=== PATIENT | male | born 1950 | race Hispanic/Latino ===

== ENCOUNTER 2018-07-08 12:50 | Day surgery (SDC) | payer MEDICARE ==
[2018-07-08 13:28] LABS: #Lymphocytes 1.2 thou/uL (1.20-3.40); #Monocytes 1.7 thou/uL (0.11-0.59); #Neutrophils 14.4 thou/uL (1.40-6.50); %Basophils 0.2 % (0.0-1.0); %Eosinophils 0.2 % (0.0-10.0); %Lymphocytes 6.9 % (21.0-51.0); %Monocytes 9.8 % (0.0-10.0); %Neutrophils 82.9 % (42.0-75.0); Hemoglobin 14.5 g/dL (14.0-18.0); Mean Corpuscular HGB CONC 33.8 g/dL (32.0-36.0); Mean Corpuscular Hemoglobin 32.8 pg (27.0-31.0); Mean Corpuscular Volume 97.1 fL (78.0-98.0); Platelet Count 236 thou/uL (130-400); RBC Distribution Width 11.8 % (11.5-14.5); Red Blood Cell (RBC) Count 4.43 mill/uL (4.70-6.10); White Blood Cell (WBC) Count 17.4 thou/uL (4.8-10.8)
[2018-07-08 13:44] LABS: Bilirubin Negative (Negative); Blood, Urine Moderate (Negative); Clarity CLEAR (Clear); Glucose, Urine (Dipstick) 500 mg/dL (Negative); Leukocyte Trace (Negative); Nitrite Negative (Negative); Protein, Urine (Dipstick) 30 mg/dL (Neg-Trace); Specific Gravity, Urine 1.025 (1.002-1.036)
[2018-07-08 13:50] LABS: Bacteria/HPF None Seen HPF (None Seen); Hyaline Casts/LPF 4-6 HYALINE CAST LPF (0-3 Hyaline); Pathc Cast-AUWi Flag 0.29 (0-2.49); Squamous Epithelial 0-3 HPF (0-3); WBC/HPF 0-3 HPF (0-3)
[2018-07-08 13:51] LABS: ALT (SGPT) 19 U/L (8-55); AST (SGOT) 19 U/L (5-34); Albumin 4.3 g/dL (3.4-4.8); Alkaline Phosphatase 79 U/L (40-150); Anion Gap 12 mmol/L (10-20); BUN (Urea Nitrogen) 11 mg/dL (8.4-25.7); Bilirubin, Total 1.4 mg/dL (0.2-1.2); Calc. Creatinine Clearance 0 mL/min (70-130); Calcium 9.4 mg/dL (7.8-10.44); Carbon Dioxide 24 mmol/L (23-31); Chloride 100 mmol/L (98-107); Estimated GFR-MDRD 90; Globulin 3.4 g/dL (2.4-3.5); Glucose 155 mg/dL (80-115); Lipase 7 U/L (8-78); Potassium 3.7 mmol/L (3.5-5.1); Protein, Total 7.7 g/dL (5.8-8.1); Sodium 132 mmol/L (136-145)
[2018-07-08] MEDS ORDERED: Glycopyrrolate 0.2 MG/ML 5 ML SYRINGE ONE (13:57)
[2018-07-08] MEDS ORDERED: Lidocaine 1% PF 5 ML VIAL ONE (13:57)
[2018-07-08] MEDS ORDERED: PROPOFOL 200 MG/20 ML VIAL ONE (13:57)
[2018-07-08] MEDS ORDERED: Dexamethasone 20 MG/5 ML VIAL ONE (13:57)
[2018-07-08] MEDS ORDERED: Ondansetron PF 4 MG/2 ML Vial ONE (13:57)
[2018-07-08] MEDS ORDERED: Piperacillin/Tazobactam 3.375 GM VIAL ONE (15:00)
--- NOTE | 2018-07-08 15:34 | ULT ---
RIGHT UPPER QUADRANT SONOGRAM: HISTORY: Right upper quadrant pain. FINDINGS: Large, echogenic stone with shadowing is present at the gallbladder neck. There is thickening of the gallbladder wall, up to 1.2 cm, and a small amount of pericholecystic fluid. The patient was report edly not tender over the gallbladder fossa at the time of the exam. The common duct is 0.3 cm. The liver is unremarkable. No free fluid. IMPRESSION: 1. Cholelithiasis. 2. Findings of acute cholecystitis include gallbladder distention, thickening of the gallbladder wal l, and a small amount of pericholecystic fluid. Clinical correlation regarding other signs and sympt oms of acute cholecystitis is required. POS: [facility]
[2018-07-08] MEDS ORDERED: Fentanyl 250 MCG/5 ML VIAL ONE (17:40)
[2018-07-08] MEDS ORDERED: Midazolam HCl 2 mg/2 ml Vial ONE (17:40)
[2018-07-08] MEDS ORDERED: Bupivacaine/Epinephrine 0.25% 30 ML VIAL ONE (17:41)
[2018-07-08] MEDS ORDERED: Iothalamate Meglumine 60% 50 ML VIAL FS ONE (17:41)
[2018-07-08] MEDS ORDERED: Ketorolac Tromethamine 30 MG/ML VIAL ONE (19:38)
[2018-07-08] MEDS ORDERED: Fentanyl 100 MCG/2 ML VIAL ONE (19:57)
--- NOTE | 2018-07-08 20:30 | HP ---
DATE OF ADMISSION: 07/08/2018 HISTORY OF PRESENT ILLNESS: Mr. Heredia is a 67-year-old man who [facility] with complaint of recurrent epigastric to right upper quadrant abdominal pain of 1 week dura tion. 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 The pain has been associated with multiple episodes of nausea, but no emesis. Denies any diarrhea. He reports ab dominal bloating and frequent flatulence. The patient denies any fevers or chills. He now reports h is pain 10/10. PAST MEDICAL HISTORY: Significant for essential hypertension and chronic back pain. PAST SURGICAL HISTORY: He denies any previous surgeries. SOCIAL HISTORY: Patient is and lives at home with his family. He is employed as a caregiver . He denies any cigarette smoking, ethanol or illicit drug abuse. FAMILY HISTORY: Notable for heart disease and diabetes mellitus. PREHOSPITALIZATION MEDICATIONS: Includes some antihypertensives. He does not recall any specifics. ALLERGIES: Patient denies any known drug allergies. REVIEW OF SYSTEMS: A 10-point review of system is essentially unremarkable except for as stated in p ast medical history and chief complaint. PHYSICAL EXAMINATION: GENERAL: This reveals a 67-year-old normally developed man who is otherwise coherent and interactive and appears stated age. The patient is alert and oriented x3. Appears to be in moderate acute dist ress secondary to abdominal pain. VITAL SIGNS: Includes blood pressure 160/55, pulse 87, respiratory rate is 16, temperature 98.2 degr ees Fahrenheit, oxygen saturation is 97% on room air. HEENT: Reveals normocephalic and atraumatic. Pupils are equal, round, and reactive to light and acc ommodation. Extraocular muscles are intact bilaterally. No sclerae icterus is present. Oral mucosa is pink and moist. No lesions are noted. NECK: Supple. No palpable lymphadenopathy or thyromegaly present. HEART: Reveals regular rate and rhythm, no murmurs or gallops auscultated. LUNGS: Clear to auscultation bilaterally. Breathing regular and unlabored. ABDOMEN: Soft with exquisite tenderness in right upper quadrant and epigastrium. He has a positive [place] sign. Liver and spleen otherwise nonpalpable below costal margin. EXTREMITIES: Reveals 2+ radial and pedal pulses bilaterally. No ankle edema is present. NEUROLOGIC: Examination reveals no focal deficits present. LABORATORY DATA AND IMAGING DATA: Pertinent laboratory findings includes a CBC with 17,400 white blo od cells, hemoglobin and hematocrit 14.5 and 43.0 respectively. Platelet count is 236,000. Metaboli c profile: Sodium 132, potassium 3.7, chloride is 100, bicarbonate 24, BUN 11, creatinine 0.85, gluc ose 155, total bilirubin 1.4, AST and ALT normal at 19 and 19 respectively. Lipase is also normal at 7. I personally reviewed the abdominal ultrasound, which is remarkable for markedly distended gallb ladder with gallbladder wall thickening and pericholecystic fluid present. Also noted is large impac gildardo solitary gallstone in the gallbladder neck. Common bile duct is normal in diameter for this ephraim ent's age at 3 mm. IMPRESSION: Acute cholecystitis with cholelithiasis. PLAN: Laparoscopic cholecystectomy. I have informed the patient of the above findings and recommend ations. I have also informed him of the risks and benefits of the proposed surgery to include, but n ot limited to bleeding, infection, injury to bile duct or surrounding structures. This information was given to the patient in the presence of his nurse in the emergency department. The patient indicated understanding of information given and has granted consent for this admission a nd surgical intervention.
--- NOTE | 2018-07-08 22:38 | OP ---
DATE OF PROCEDURE: 07/08/2018 POSTOPERATIVE DIAGNOSES: Acute cholecystitis and cholelithiasis. PREOPERATIVE DIAGNOSES: Acute cholecystitis and cholelithiasis. OPERATION PERFORMED: Laparoscopic cholecystectomy. SURGEON: Godfrey Wong D.O. ANESTHESIA: General endotracheal. ESTIMATED BLOOD LOSS: 100 mL. FLUIDS GIVEN: 1000 mL crystalloids. SPONGE AND INSTRUMENT COUNT: Certified as correct x2. COMPLICATIONS: None apparent at the time of operation. INDICATIONS FOR OPERATION: A 67-year-old man presented with recurrent epigastric to right u pper quadrant abdominal pain of 1 week duration. Clinical and radiographic examination was consisten t with acute cholecystitis with cholelithiasis for which patient was brought to the operating room fo r cholecystectomy. Findings are consistent with markedly dilated gallbladder in the usual anatomic l ocation. This was a completely encased by omental adhesions. DESCRIPTION OF PROCEDURE: Informed consent obtained from the patient who was brought to the operatin g room and placed in supine position. Following general anesthesia, abdomen is sterilely prepped and draped in usual fashion. Skin below the umbilicus was infiltrated with 0.25% Marcaine with epinephr ine. A small curvilinear infraumbilical incision is made using an 11 scalpel. Umbilical stalk was g rasped with Leisa's and elevated. Veress needle was inserted through the incision and placed in the peritoneal cavity through which the abdomen was insufflated with 3 liters of CO2 gas. Intraabdomina l pressure was noted at 2 mmHg. Following abdominal insufflation, Veress needle was removed and repl aced with a 5 mm trocar introduced using a Visiport under laparoscopy. Laparoscopy confirmed proper placement of the port, no injuries to underlying structures. Additional laparoscopy reveals gallblad laura in the usual anatomic location completely encasing omental adhesions. Under direct laparoscopy, a 12 mm epigastric and two 5 mm right lateral subcostal ports were placed after the overlying skin wa s infiltrated with 0.25% Marcaine with epinephrine and appropriate incisions made. Patient is placed in the reverse Trendelenburg position, rotated to his left. I introduced the [place] dissector wit h cautery, using this to take down omental adhesions to reveal the fundus of the gallbladder. I intr oduced a Prestige grasper through the right lateral subcostal port attempted to grasp the fundus of t he gallbladder which was markedly distended and tense. I decided, therefore to decompress the gallbl adder. To achieve this, I used an Endo suction catheter with cautery to create a cholecystotomy at t he fundus of the gallbladder, evacuating large amount of excess white bile. The Prestige grasper was then applied at the fundus of the gallbladder which was elevated cephalad. Omental adhesions were then dissected free from the remainder of the gallbladder. A second Prestige grasper was introduced through the right medial subcostal port grasping the Johnson's pouch which was retracted laterally. An anterior coursing cystic artery dissected free from surrounding structures and divided between clips applying two clips proximally and one clip at the junction of the cystic ar tricia and gallbladder. The cystic duct was dissected free from surrounding structures and divided bet ween clips in a similar fashion. Gallbladder surface removed from the liver bed using cautery. The gallbladder was delivered of the abdominal cavity using an EndoCatch. Gallbladder wall was necrotic at various points. The gallbladder fossa was inspected and there was a fair amount of venous ooze attended to control he mostasis with cautery. However, immediate hemostasis was then achieved using a 1 x 2 inch piece of f ibula. Operative site was inspected again and finding no other pathology. Fascia of the epigastric port was closed using 0 Vicryl suture and Endo closure device under laparoscopy. Abdomen was desuffl ated. All ports and instruments removed and accounted for. Skin incisions closed using 4-0 Monocryl suture in subcuticular fashion. Dermabond was applied over the incisional closure. The patient luis erated this operation without any apparent complication and was returned to the recovery room in sati sfactory condition.
== END 2018-07-08 21:14 | disposition home or self-care (01) ==
LOC: ERS 12:50 → SDC 15:50
PROVIDERS: ATTEND Surgery
PROC: 0FT44ZZ Resection of Gallbladder, Percutaneous Endoscopic Approach (ICD-10-PCS; principal; 2018-07-08)
DX: K80.12 Calculus of gallbladder with acute and chronic cholecystitis without obstruction (principal); I10 Essential (primary) hypertension; G89.29 Other chronic pain; M54.9 Dorsalgia, unspecified; Z79.899 Other long term (current) drug therapy
CPT/HCPCS: 36415; 76705; 80053; 81003; 81015; 83690; 85025; 88304; 94760; 96365; 96374; J1100; J1885; J2001; J2250; J2405; J2543; J2704; J3010; Q9961

== ENCOUNTER 2018-12-06 06:38 | Outpatient (CLI) | payer OTHER ==
--- NOTE | 2018-12-06 08:48 | ULT ---
RIGHT UPPER QUADRANT ULTRASOUND: Date: 12/06/18 INDICATION: Abnormal LFTs. COMPARISON: 07/08/18. FINDINGS: Overlying bowel gas slightly limits image detail. The left hepatic lobe is not well seen. Visualized aspects of the right hepatic lobe are unremarkable appearing. The gallbladder is surgically absent. C ommon bile duct measures 2.9 mm. Pancreas is largely obscured. The right kidney measures 10.1 x 4.3 x 4.5 cm. No focal renal lesion or hydronephrosis evident. IMPRESSION: 1. Some limitation of exam detail due to overlying bowel gas. 2. Interval cholecystectomy from prior dated 07/08/18. POS: [facility]
== END 2018-12-06 06:39 | disposition home or self-care (01) ==
LOC: BICULT 06:38
DX: R94.5 Abnormal results of liver function studies (principal); Z90.49 Acquired absence of other specified parts of digestive tract
CPT/HCPCS: 76705